=== PATIENT | male | born 1990 | race Caucasian/White ===

== ENCOUNTER 2018-07-13 20:17 | Emergency (ER) | payer OTHER ==
[~2018-07-13] VITALS: Ht 182.9 cm; Wt 68.0 kg
[~2018-07-13 20:17] MED LIST: IBUPROFEN 800800 MG PO; NAPROSYN500 MG PO; NOHOMEMEDICATIONS; PENICILLIN V P500 MG PO; ULTRAM 50MG TAB50 MG PO
[2018-07-13] MEDS ORDERED: KEFLEX500 M1 PO (20:58)
[2018-07-13] MEDS ORDERED: ACETAMINOPHEN-1 EAC1 PO (20:58)
[2018-07-13 21:05] VITALS: BP 132/85
== END 2018-07-13 21:05 | disposition home or self-care (01) ==
LOC: M.ERS 20:17
DX: H66.92 Otitis media, unspecified, left ear (principal); F17.210 Nicotine dependence, cigarettes, uncomplicated

== ENCOUNTER 2021-02-14 13:37 | Emergency (ER) | payer OTHER ==
[~2021-02-14] VITALS: Ht 182.9 cm; Wt 68.0 kg
[~2021-02-14 13:37] MED LIST changes: +ACETAMINOPHEN-1 EAC1 PO; +KEFLEX500 M1 PO
[2021-02-14] MEDS ORDERED: NORCO5 PO (14:10)
[2021-02-14] MEDS ORDERED: PENICILLIN V P500 MG PO (14:10)
[2021-02-14 14:22] VITALS: BP 126/83
== END 2021-02-14 14:22 | disposition home or self-care (01) ==
LOC: M.ERS 13:37
DX: K04.7 Periapical abscess without sinus (principal); K02.9 Dental caries, unspecified

== ENCOUNTER 2021-03-21 20:37 | Emergency (ER) | payer OTHER ==
[~2021-03-21] VITALS: Ht 182.9 cm; Wt 68.0 kg
[~2021-03-21 20:37] MED LIST changes: +NORCO5 PO
[2021-03-21 20:50] VITALS: BP 116/87
[2021-03-21] MEDS ORDERED: CLEOCIN HCL150 MG PO (21:32)
== END 2021-03-21 21:43 | disposition home or self-care (01) ==
LOC: M.ERS 20:37
DX: K04.7 Periapical abscess without sinus (principal); K02.9 Dental caries, unspecified; F17.210 Nicotine dependence, cigarettes, uncomplicated

== ENCOUNTER 2021-03-23 16:21 | Emergency (ER) | payer OTHER ==
[~2021-03-23 16:21] MED LIST changes: +CLEOCIN HCL150 MG PO
== END 2021-03-23 16:52 | disposition left against medical advice (07) ==
LOC: M.ERS 16:21
DX: Z53.21 Procedure and treatment not carried out due to patient leaving prior to being seen by health care provider (principal)

== ENCOUNTER 2021-05-08 21:58 | Emergency (ER) | payer OTHER ==
[~2021-05-08] VITALS: Ht 182.9 cm; Wt 68.0 kg
[2021-05-08] MEDS ORDERED: KETOCONAZOLE15 GM TOP (22:35)
[2021-05-08] MEDS ORDERED: BACTRIM DS TAB1 EACH PO (22:35)
[2021-05-08] MEDS ORDERED: DIFLUCAN150 MG PO (22:35)
[2021-05-08 22:46] VITALS: BP 132/89
== END 2021-05-08 22:46 | disposition home or self-care (01) ==
LOC: M.ERS 21:58
DX: L02.416 Cutaneous abscess of left lower limb (principal); L02.415 Cutaneous abscess of right lower limb; B35.6 Tinea cruris

== ENCOUNTER 2021-06-05 03:38 | Emergency (ER) | payer OTHER ==
[~2021-06-05] VITALS: Ht 182.9 cm; Wt 66.7 kg
[~2021-06-05 03:38] MED LIST changes: +BACTRIM DS TAB1 EACH PO; +DIFLUCAN150 MG PO; +KETOCONAZOLE15 GM TOP
[2021-06-05 04:12] VITALS: BP 146/100
== END 2021-06-05 04:13 | disposition left against medical advice (07) ==
LOC: M.ERS 03:38
DX: M25.561 Pain in right knee (principal); Z53.21 Procedure and treatment not carried out due to patient leaving prior to being seen by health care provider